=== PATIENT | female | born 1965 | race Caucasian/White ===

== ENCOUNTER 2021-06-06 23:04 | Emergency (ER) | payer BC ==
[2021-06-07] MEDS ORDERED: Lactated Ringers 1,000 ML IV ONE (00:07)
[2021-06-07] MEDS ORDERED: Ondansetron 4 MG/2 ML SDV IVPUSH ONE (00:09)
[2021-06-07] MEDS ORDERED: Dexamethasone 10 MG/ML SDV IVPUSH ONE (00:10)
--- NOTE | 2021-06-07 00:11 | EDM.PDOC ---
ED HPI GENERAL MEDICAL PROBLEM - General Chief Complaint: Respiratory Problem Stated Complaint: DIFFICULTY BREATHING/NAUSEA Time Seen by Provider: 06/06/21 23:47 - History of Present Illness INITIAL COMMENTS - FREE TEXT/NARRATIVE: Patient arrived to ED by private vehicle Onset of symptoms was 05/30/2021 Describes having "head and chest cold" Endorses symptoms of cough, vomiting, and diarrhea Associated headache first 2 days, now resolved Had 2 episodes of vomiting today, 3-4 episodes of diarrhea Endorses mild body aches Was seen earlier today by primary care provider and prescribed azithromycin Developed shortness of breath subsequently Performed a home COVID-19 test which was positive has been been sick over the same interval, with improving symptoms Patient was found to be significantly hypoxic upon ED arrival Supplemental oxygen was initiated by RN - Related Data Allergies Allergy/AdvReac Type Severity Reaction Status Date / Time No Known Allergies Allergy Verified 06/06/21 23:29 Past Medical History - Past Health History Medical/Surgical History: Denies Medical/Surgical History Cardiovascular History: Reports: Hypertension Social & Family History - Tobacco Use Tobacco Use Status *Q: Former Tobacco User Used Tobacco, but Quit: Yes Month/Year Tobacco Last Used: 2017 - Recreational Drug Use Recreational Drug Use: No ED ROS GENERAL - Review of Systems Review Of Systems: See Below Free Text/Narrative/Comment: Constitutional - no fever Eyes - no eye pain; no visual disturbance ENT - no rhinorrhea; no congestion; no epistaxis Cardiovascular - no chest pain Respiratory - shortness of breath; cough Gastrointestinal - abdominal pain; nausea; vomiting; diarrhea Genitourinary - no dysuria Musculoskeletal - no neck pain; no back pain; no extremity injury; myalgias Neurological - headache; no speech disturbance; no weakness ED EXAM, GENERAL - Physical Exam Exam: See Below Free Text/Narrative:: Constitutional - awake; alert; moderate general distress; mild respiratory distress Head - no facial swelling or weakness Eyes - extra ocular motion intact; conjunctiva normal; pupils equal and reactive to light ENT - no nasal deformity; no epistaxis; normal phonation; mucus membranes moist; Neck - no swelling Respiratory - mild respiratory effort; mild, diffuse, bilateral crackles; no wheezing; no stridor Cardiovascular - regular rhythm; normal rate; S1; S2; grade 1/6 systolic murmur GI/Abdomen - normal bowel sounds; soft; mild, generalized tenderness; no rebound; no guarding; no mass Musculoskeletal - grossly normal strength and motion; no swelling or deformity Skin - warm; dry Neurologic - normal speech; no weakness Psychiatric - normal mood and affect; memory and attention normal #1 Interpretation EKG Date: 06/07/21 Time: 00:33 Rhythm: NSR Rate (Beats/Min): 81 Friedens: Normal P-Wave: Present QRS: Normal ST-T: Other (Nonspecific T wave abnormality precordial and lateral leads) Comparison: NA - No Prior EKG Course - Vital Signs Text/Narrative:: . Considered etiologies included: COVID-19, dyspnea, pneumonia, pulmonary embolism, dehydration, metabolic derangement Symptoms and examination were discussed She was advised of need for admission and consideration of dyspnea and hypoxia Investigations were initiated Empiric treatment was initiated with IV fluid infusion and ondansetron Dexamethasone was also administered CTA chest was ordered for elevated D-dimer result 0134 Patient was discussed with Dr. Wakefield (hospitalist at [facility]) Patient was accepted by Dr. Wakefield for transfer Arrangements were made for transport by ambulance Last Recorded V/S: Last Vital Signs Temp 36.6 C 06/06/21 23:29 Pulse 82 06/06/21 23:29 Resp 18 06/06/21 23:29 BP 133/53 L 06/06/21 23:29 Pulse Ox 79 L 06/06/21 23:29 - Orders/Labs/Meds Labs: Laboratory Tests 06/06/21 06/06/21 06/06/21 Range/Units 23:25 23:45 23:45 WBC 7.09 (3.98-10.04) K/mm3 RBC 4.16 (3.98-5.22) M/mm3 Hgb 12.3 D (11.2-15.7) gm/dl Hct 35.2 (34.1-44.9) % MCV 84.6 D (79.4-94.8) fl MCH 29.6 (25.6-32.2) pg MCHC 34.9 (32.2-35.5) g/dl RDW Std Deviation 41.1 (36.4-46.3) fL Plt Count 210 D (182-369) K/mm3 MPV 9.8 (9.4-12.3) fl Neut % (Auto) 84.5 H (34.0-71.1) % Lymph % (Auto) 12.0 L (19.3-51.7) % Ida % (Auto) 2.7 L (4.7-12.5) % Eos % (Auto) 0 L (0.7-5.8) Baso % (Auto) 0.1 (0.1-1.2) % Neut # (Auto) 5.99 (1.56-6.13) K/mm3 Lymph # (Auto) 0.85 L (1.18-3.74) K/mm3 Ida # (Auto) 0.19 L (0.24-0.36) K/mm3 Eos # (Auto) 0.00 L (0.04-0.36) K/mm3 Baso # (Auto) 0.01 (0.01-0.08) K/mm3 D-Dimer, Quantitative 0.79 H (0.19-0.50) mg/L Sodium (136-145) mEq/L Potassium (3.5-5.1) mEq/L Chloride (98-107) mEq/L Carbon Dioxide (21-32) mEq/L Anion Gap (5-15) BUN (7-18) mg/dL Creatinine (0.55-1.02) mg/dL Est Cr Clr Drug Dosing mL/min Estimated GFR (MDRD) (>60) mL/min BUN/Creatinine Ratio (14-18) Glucose (70-99) mg/dL Calcium (8.5-10.1) mg/dL Total Bilirubin (0.2-1.0) mg/dL AST (15-37) U/L ALT (14-59) U/L Alkaline Phosphatase (46-116) U/L Troponin I (0.00-0.056) ng/mL Total Protein (6.4-8.2) g/dl Albumin (3.4-5.0) g/dl Globulin gm/dL Albumin/Globulin Ratio (1-2) Influenza Type A RNA Negative (NEGATIVE) Influenza Type B RNA Negative (NEGATIVE) SARS-CoV-2 RNA (CURTIS) Positive H (NEGATIVE) 06/06/21 Range/Units 23:45 WBC (3.98-10.04) K/mm3 RBC (3.98-5.22) M/mm3 Hgb (11.2-15.7) gm/dl Hct (34.1-44.9) % MCV (79.4-94.8) fl MCH (25.6-32.2) pg MCHC (32.2-35.5) g/dl RDW Std Deviation (36.4-46.3) fL Plt Count (182-369) K/mm3 MPV (9.4-12.3) fl Neut % (Auto) (34.0-71.1) % Lymph % (Auto) (19.3-51.7) % Ida % (Auto) (4.7-12.5) % Eos % (Auto) (0.7-5.8) Baso % (Auto) (0.1-1.2) % Neut # (Auto) (1.56-6.13) K/mm3 Lymph # (Auto) (1.18-3.74) K/mm3 Ida # (Auto) (0.24-0.36) K/mm3 Eos # (Auto) (0.04-0.36) K/mm3 Baso # (Auto) (0.01-0.08) K/mm3 D-Dimer, Quantitative (0.19-0.50) mg/L Sodium 127 L D (136-145) mEq/L Potassium 3.3 L (3.5-5.1) mEq/L Chloride 92 L D (98-107) mEq/L Carbon Dioxide 25 (21-32) mEq/L Anion Gap 13.3 (5-15) BUN 8 (7-18) mg/dL Creatinine 0.7 (0.55-1.02) mg/dL Est Cr Clr Drug Dosing 68.52 mL/min Estimated GFR (MDRD) > 60 (>60) mL/min BUN/Creatinine Ratio 11.4 L (14-18) Glucose 123 H (70-99) mg/dL Calcium 8.2 L (8.5-10.1) mg/dL Total Bilirubin 0.3 (0.2-1.0) mg/dL AST 66 H (15-37) U/L ALT 52 (14-59) U/L Alkaline Phosphatase 51 (46-116) U/L Troponin I < 0.017 (0.00-0.056) ng/mL Total Protein 6.5 (6.4-8.2) g/dl Albumin 3.1 L (3.4-5.0) g/dl Globulin 3.4 gm/dL Albumin/Globulin Ratio 0.9 L (1-2) Influenza Type A RNA (NEGATIVE) Influenza Type B RNA (NEGATIVE) SARS-CoV-2 RNA (CURTIS) (NEGATIVE) Meds: Medications Discontinued Medications Generic Name Dose Route Start Last Admin Trade Name Freq PRN Reason Stop Dose Admin Dexamethasone 6 mg 06/07/21 00:10 06/07/21 00:24 Dexamethasone 10 Mg/Ml Sdv IVPUSH 06/07/21 00:11 6 mg ONETIME ONE Administration Lactated Ringer's 1,000 mls @ 999 mls/hr 06/07/21 00:07 06/07/21 00:24 Ringers, Lactated IV 06/07/21 01:07 999 mls/hr .BOLUS ONE Administration Sodium Chloride 100 mls @ 70 mls/hr 06/07/21 02:00 06/07/21 01:56 Normal Saline IV 70 mls/hr ASDIRECTED MULUGETA Administration Iopamidol 100 ml 06/07/21 01:55 06/07/21 01:56 Iopamidol 755 Mg/Ml 100 Ml Bottle IVPUSH 06/07/21 01:56 100 ml ONETIME ONE Administration Ondansetron HCl 4 mg 06/07/21 00:09 06/07/21 00:24 Ondansetron 4 Mg/2 Ml Sdv IVPUSH 06/07/21 00:10 4 mg ONETIME ONE Administration Sodium Chloride 10 ml 06/07/21 00:08 06/07/21 01:56 Sodium Chloride 0.9% 10 Ml Syringe FLUSH 10 ml ASDIRECTED PRN Administration Keep Vein Open Sodium Chloride 10 ml 06/07/21 01:55 06/07/21 02:01 Sodium Chloride 0.9% 10 Ml Sdv FLUSH 06/07/21 01:56 10 ml ONETIME ONE Administration - Radiology Interpretation Free Text/Narrative:: XR chest, AP portable, interpreted by marketing copywriter: Patchy bilateral pulmonary infiltrates CTA chest, IV contrast, preliminary radiology report: 1. Pulmonary findings are consistent with the provided diagnosis of COVID-19 pneumonia 2. The study is suboptimal for evaluation of the pulmonary arteries. No large central pulmonary embolus. No evidence of right heart strain. 3. Cardiomegaly Departure - Departure Time of Disposition: 02:29 Disposition: DC/Tfer to Acute Hospital 02 Clinical Impression: Pneumonia due to COVID-19 virus, Hypoxia - Discharge Information Sepsis Event Note (ED) - Evaluation Sepsis Screening Result: No Definite Risk
[2021-06-07 00:21] LABS: CORONAVIRUS COVID-19 NAA POSITIVE (NEGATIVE)
[2021-06-07] MEDS: Sodium Chloride 0.9% 10 ML Syringe FLUSH PRN ×2 (00:24→01:56)
[2021-06-07] MEDS ORDERED: Iopamidol 755 Mg/ML 100 ML Bottle IVPUSH ONE (01:55)
[2021-06-07] MEDS ORDERED: Sodium Chloride 0.9% 10 ML SDV FLUSH ONE (01:55)
[2021-06-07] MEDS ORDERED: Sodium Chloride 0.9% 100 ML IV SCH (02:00)
--- NOTE | 2021-06-07 08:03 | CT ---
CT chest Multiple axial sections were obtained from above the dome of the diaphragm inferiorly through the lung bases. Intravenous contrast was utilized. Study has been performed as a pulmonary angiogram protocol. Comparison: Prior chest x-ray performed earlier on the same date (12:17 AM), no prior chest CT study is available. Findings: Thoracic aorta shows no aneurysm. Pulmonary arteries are not optimally opacified. No filling defects are seen within the main or segmental branches. Smaller subsegmental pulmonary emboli could be missed. Small lymph nodes are seen within the mediastinum which are felt to be within normal limits. No pericardial thickening is seen. Mild cardiomegaly is noted. Upper abdomen shows calcified gallstones within the gallbladder. Small hiatal hernia is noted. Lung window settings were reviewed. Numerous areas of parenchymal changes are seen throughout both lungs. Findings most likely represent COVID pneumonia. No pleural effusions are seen. Bone window settings were reviewed. No acute osseous abnormality is appreciated. Impression: 1. Pulmonary arteries are not optimally opacified, within this limitation no findings of pulmonary embolism within the main or segmental branches are seen. Smaller subsegmental pulmonary emboli could be missed. 2. Numerous parenchymal densities are seen throughout both lungs most likely representing diffuse COVID pneumonia. 3. Slight cardiomegaly with no other acute abnormality being seen. 4. Calcified gallstones and small hiatal hernia. Diagnostic code #3 I agree with preliminary report from [facility], finalized on 06/07/21, 3:45 AM CDT, code 1
--- NOTE | 2021-06-07 08:05 | CR ---
Chest: Portable view of the chest was obtained. Comparison: Prior chest x-ray of 06/20/18. Heart size is slightly enlarged. Diffuse increased density is seen within both sides of the chest as an interval change from prior chest x-ray. Bony structures show nothing acute. Impression: 1. Patchy areas of increased density within both sides of chest compatible with COVID pneumonia. Diagnostic code #3
== END 2021-06-07 03:14 ==
LOC: JD.ED 23:04
DX: U07.1 COVID-19 (principal); J12.82 Pneumonia due to coronavirus disease 2019; R09.02 Hypoxemia; I10 Essential (primary) hypertension
CPT/HCPCS: 0240U; 36415; 71045; 71275; 80053; 84484; 85025; 85379; 93005; 96374; 96375; 99285; J1100; J2405; J7120; Q9967; 93010